=== PATIENT | male | born 1960 | race African-American/Black ===

== ENCOUNTER 2022-12-10 22:05 | Inpatient (IN) | payer OTHER ==
[2022-12-10 22:45] VITALS: BMI 21.7
[2022-12-10] MEDS ORDERED: NALOXONE HCL 0.4 MG/ML VIAL IM PRN (23:03)
[2022-12-10] MEDS ORDERED: LOPERAMIDE HCL 2 MG CAPSULE PO PRN (23:03)
[2022-12-10] MEDS ORDERED: MAGNESIUM HYDROX 2400MG/30ML ORAL SUSPENSION 30 ML CUP PO PRN (23:03)
[2022-12-10] MEDS ORDERED: NICOTINE POLACRILEX 2 MG GUM BUC PRN (23:03)
[2022-12-10] MEDS ORDERED: POLYETHYLENE GLYCOL (HEALTHYLAX) 3350 17 GM PACKET PO PRN (23:03)
[2022-12-10] MEDS ORDERED: BISMUTH SUBSALICYLATE 524 MG/30 ML PO PRN (23:03)
[2022-12-10] MEDS ORDERED: chlordiazePOXIDE HCL 25 MG CAPSULE PO PRN (23:03)
[2022-12-10] MEDS ORDERED: BENZONATATE 200 MG CAPSULE PO PRN (23:03)
[2022-12-10] MEDS ORDERED: ONDANSETRON *ODT* 4 MG TABLET SL PRN (23:03)
[2022-12-10] MEDS ORDERED: NALOXONE HCL (KLOXXADO) 8 MG SPRAY NS PRN (23:03)
[2022-12-10] MEDS ORDERED: guaiFENesin 600 MG TABLET.ER (FP) PO PRN (23:03)
[2022-12-10] MEDS ORDERED: IBUPROFEN 400 MG TABLET (FP) PO PRN (23:03)
[2022-12-10] MEDS ORDERED: IBUPROFEN 600 MG TABLET (FP) PO PRN (23:03)
[2022-12-10] MEDS ORDERED: ACETAMINOPHEN 325 MG TABLET (FP) PO PRN (23:03)
[2022-12-10] MEDS ORDERED: DICYCLOMINE HCL 10 MG CAPSULE PO PRN (23:03)
[2022-12-10] MEDS ORDERED: MAG HYDROX/AL HYDROX/SIMETH 30 ML UNIT-DOSE CUP PO PRN (23:03)
[2022-12-10] MEDS ORDERED: BENZOCAINE/MENTHOL (CHLORASEPTIC ) LOZENGE MM PRN (23:03)
[2022-12-10] MEDS ORDERED: chlordiazePOXIDE HCL 25 MG CAPSULE ONE (23:13)
[2022-12-10] MEDS ORDERED: ONDANSETRON *ODT* 4 MG TABLET ONE (23:14)
[2022-12-10] MEDS: chlordiazePOXIDE HCL 25 MG CAPSULE PO SCH (23:50)
[2022-12-11] MEDS: chlordiazePOXIDE HCL 25 MG CAPSULE PO SCH ×4 (05:54→22:35)
[2022-12-11] MEDS ORDERED: methaDONE HCL 10 MG TABLET PO SCH (08:30)
[2022-12-11] MEDS: methaDONE 80 MG, methaDONE 10 MG PO SCH (10:16)
[2022-12-11] MEDS: PRENATAL VITAMINS W/ FOLIC ACID TABLET (FP) PO SCH (10:17)
[2022-12-11] MEDS: NICOTINE 14 MG/24 HOURS TOPICAL PATCH TD SCH (10:17)
[2022-12-11 11:22] LABS: BLOOD UREA NITROGEN 12.2 mg/dL (7-18)
[2022-12-11 11:23] LABS: ALBUMIN 2.9 g/dl (3.4-5.0)
[2022-12-11 11:26] LABS: CREATININE 0.7 mg/dL (0.55-1.3)
[2022-12-11 11:27] LABS: TOT PROT 7.3 g/dl (6.4-8.2)
[2022-12-11 11:29] LABS: HEMATOCRIT 32.5 % (35.4-49); HEMOGLOBIN 11.1 GM/dL (11.7-16.9); MCH 32.2 pg (25.7-33.7); MCHC 34.2 g/dl (32.0-35.9); MEAN CELL VOLUME 94.2 fl (80-96); MEAN PLT VOLUME 8.2 fl (7.5-11.1); PLATELET COUNT 302 10^3/uL (134-434); RBC 3.45 M/mm3 (4.00-5.60); RDW 13.5 % (11.9-15.9); WHITE BLOOD COUNT 3.8 K/mm3 (4.0-10.0)
[2022-12-11] MEDS: THIAMINE HCL 100 MG TABLET (FP) PO SCH (22:34)
[2022-12-11] MEDS: MELATONIN 5 MG TABLETS PO SCH (22:34)
[2022-12-12] MEDS: chlordiazePOXIDE HCL 25 MG CAPSULE PO SCH ×4 (05:45→22:22)
[2022-12-12] MEDS: methaDONE 80 MG, methaDONE 10 MG PO SCH (05:46)
[2022-12-12] MEDS: PARoxetine HCL 20 MG TABLET PO SCH (10:28)
[2022-12-12] MEDS: PRENATAL VITAMINS W/ FOLIC ACID TABLET (FP) PO SCH (10:28)
[2022-12-12] MEDS: NICOTINE 14 MG/24 HOURS TOPICAL PATCH TD SCH (10:28)
[2022-12-12] MEDS: MELATONIN 5 MG TABLETS PO SCH (22:22)
[2022-12-12] MEDS: THIAMINE HCL 100 MG TABLET (FP) PO SCH (22:22)
[2022-12-13] MEDS ORDERED: chlordiazePOXIDE HCL 10 MG CAPSULE PO PRN
[2022-12-13] MEDS: chlordiazePOXIDE HCL 10 MG CAPSULE PO SCH ×4 (05:35→22:53)
[2022-12-13] MEDS: methaDONE 80 MG, methaDONE 10 MG PO SCH (05:35)
[2022-12-13] MEDS: PARoxetine HCL 20 MG TABLET PO SCH (10:08)
[2022-12-13] MEDS: PRENATAL VITAMINS W/ FOLIC ACID TABLET (FP) PO SCH (10:09)
[2022-12-13] MEDS: NICOTINE 14 MG/24 HOURS TOPICAL PATCH TD SCH (10:09)
[2022-12-13] MEDS: MELATONIN 5 MG TABLETS PO SCH (22:54)
[2022-12-13] MEDS: THIAMINE HCL 100 MG TABLET (FP) PO SCH (22:54)
[2022-12-14] MEDS: methaDONE 80 MG, methaDONE 10 MG PO SCH (05:39)
[2022-12-14] MEDS: chlordiazePOXIDE HCL 10 MG CAPSULE PO SCH ×2 (05:39→18:21)
[2022-12-14] MEDS: PARoxetine HCL 20 MG TABLET PO SCH (09:57)
[2022-12-14] MEDS: NICOTINE 14 MG/24 HOURS TOPICAL PATCH TD SCH (09:57)
[2022-12-14] MEDS: PRENATAL VITAMINS W/ FOLIC ACID TABLET (FP) PO SCH (09:57)
[2022-12-14] MEDS: MELATONIN 5 MG TABLETS PO SCH (23:59)
[2022-12-14] MEDS: THIAMINE HCL 100 MG TABLET (FP) PO SCH (23:59)
[2022-12-15] MEDS ORDERED: chlordiazePOXIDE HCL 10 MG CAPSULE PO ONE (05:00)
[2022-12-15] MEDS: methaDONE 80 MG, methaDONE 10 MG PO SCH (05:32)
[2022-12-15 06:24] VITALS: RESP 16
[2022-12-15 08:54] VITALS: BP 112/77; PULSE 72; TEMP 97.3
[2022-12-15] MEDS: NICOTINE 14 MG/24 HOURS TOPICAL PATCH TD SCH (09:39)
[2022-12-15] MEDS: PARoxetine HCL 20 MG TABLET PO SCH (09:39)
[2022-12-15] MEDS: PRENATAL VITAMINS W/ FOLIC ACID TABLET (FP) PO SCH (09:39)
== END 2022-12-15 09:08 | disposition home or self-care (01) | DRG 773 ==
LOC: YASAS 22:05 → Y3N 23:34
PROVIDERS: ADMIT Allergy & Immunology; ATTEND Surgery
PROC: HZ2ZZZZ Detoxification Services for Substance Abuse Treatment (ICD-10-PCS; principal; 2022-12-10)
DX: F10.230 Alcohol dependence with withdrawal, uncomplicated (principal); F11.20 Opioid dependence, uncomplicated; F17.210 Nicotine dependence, cigarettes, uncomplicated; F19.24 Other psychoactive substance dependence with psychoactive substance-induced mood disorder; F41.9 Anxiety disorder, unspecified; G62.9 Polyneuropathy, unspecified; D64.9 Anemia, unspecified; R76.8 Other specified abnormal immunological findings in serum; Z86.19 Personal history of other infectious and parasitic diseases; Z28.310 Unvaccinated for COVID-19; Z28.9 Immunization not carried out for unspecified reason; Z99.89 Dependence on other enabling machines and devices
CPT/HCPCS: 36415; 80053; 85027; 86593; 86780; 93005; 93010; C9803-CS; Q0162; U0003; U0005